=== PATIENT | female | born 1980 | race Caucasian/White ===

== ENCOUNTER 2018-08-17 14:08 | Outpatient (REF) | payer MEDICAID, SELFPAY ==
--- NOTE | 2018-08-17 13:20 | PAPFT_PTH ---
PATIENT: Sally Chauhan LOC: [facility] U#:[id number] AGE/SX: 38/F ROOM: RE08/17/[address]: Mikala Mckeon : 1980 BED: DIS: 08/17/2018 SPEC #: [id number] RECD: 08/17/18 17:56 STATUS: RAAD REMary Kate #: [id number] SARAY: 08/17/18 13:[address]: Mikala Mckeon DEPT: [facility] Cytology RECD BY: Eusebia Duncan ENTERED: 08/17/18 17:57 SP TYPE: PAPFT OTHR DR: Foster Singh Tissues: 1 - CX/ENDOCX FOR PAP SMEARS Procedures: PAP THIN PREP/UVM Screening HPV DNA PROBE Comments: [id number]
[2018-08-18 18:04] LABS: Chlamydia Result Negative; GC Result Negative; Specimen Description CERVIX
== END 2018-08-17 14:28 ==
LOC: LBN 14:08
PROVIDERS: PCP Naturopath; Visit Provider Obstetrics & Gynecology Gynecology
DX: Z12.4 Encounter for screening for malignant neoplasm of cervix (principal); Z11.51 Encounter for screening for human papillomavirus (HPV); Z11.3 Encounter for screening for infections with a predominantly sexual mode of transmission
CPT/HCPCS: 87491; 87591; 88142; 87624

== ENCOUNTER 2018-09-29 11:24 | Outpatient (CLI) | payer MEDICAID, SELFPAY ==
[2018-09-29 14:11] LABS: HCG Quant, Pregnancy 31592 mIU/mL (1-3)
== END 2018-09-29 11:44 ==
PROVIDERS: PCP Family Medicine; Visit Provider Obstetrics & Gynecology Gynecology
DX: N92.6 Irregular menstruation, unspecified (principal)
CPT/HCPCS: 36415; 84702

== ENCOUNTER 2018-09-30 02:01 | Outpatient (CLI) | payer MEDICAID, SELFPAY ==
--- NOTE | 2018-09-30 08:19 | DI.US_ITS ---
SYMPTOM/DIAGNOSIS: LLQ PAIN, R10.32, 020.9 OB ULTRASOUND: 09/30 OB ultrasound was performed utilizing first trimester protocol with transabdominal and transvaginal scanning. There is viable intrauterine gestation with crown/rump length measurements consistent with gestational age of 6 weeks, 1 day and EDC of 05/25/19. There is subchorionic fluid collection noted. cardiac activity is observed at a rate of 122 BPM. The ovaries are essentially unremarkable in appearance. Many abnormalities cannot be diagnosed. A normal exam does not exclude a congenital anomaly. Radiology No.[id number] LMP: 08/17/18 Exam Date: [facility] wks days on EDC ([facility]) Confirmed: HISTORY: FIRST TRIMESTER BLEEDING, EDC ---- PREDICTED GESTATIONAL AGE NUMBER 6 +3 weeks with a range of 5 +3 week to 7 +3 weeks. 1 Determined by___1STUS_XX__LMP___HISTORY Info. pertaining to fetus # PLACENTA PRESENTATION Grade 0 Cephalic___ Anterior___Posterior___ Breech____ Right Left Transverse(head right___ Fundal___Low-lying___Previa___ Transverse(head left___ Varying BIOMETRY AMNIOTIC FLUID BPD: mm weeks Normal HC: mm weeks AC: mm weeks FL: mm weeks AMNIOTIC FLUID INDEX >26 WK CRL: 4.7 mm 6 +1 weeks Cisterna Magna: mm CI: RUQ: LUQ Cerebellum: cm EFW: grams Percentile RLQ: LLQ Total: cms Composite AGE= 6 +1 wks EDC by US___05/25/19 BIOPHYSICAL PROFILE ANATOMY IDENTIFIED SCORE 0/2 Heart: 4-Chamber___Rate:BPM__122-125___ LVOT: RVOT: Amniotic Fluid(>2cms)____ Stomach: Kidneys: Respirations (>30 secs) Bladder: Post. Fossa: Body Flex/Extension 3 vessel cord: Ventricles: cord insertion: Lips:____ Extremity Flex/Extension spinal morphology: Nose: Total Score= Palate: NS=not seen
== END 2018-09-30 02:21 ==
PROVIDERS: PCP Family Medicine; Visit Provider Obstetrics & Gynecology Gynecology
DX: R10.32 Left lower quadrant pain (principal); O20.9 Hemorrhage in early pregnancy, unspecified
CPT/HCPCS: 76801

== ENCOUNTER 2018-11-23 01:25 | Outpatient (CLI) | payer MEDICAID, SELFPAY ==
--- NOTE | 2018-11-23 08:00 | DI.US_ITS ---
Many abnormalities cannot be diagnosed. A normal exam does not exclude a congenital anomaly. Radiology No. LMP: Exam Date: 11/23/18 [facility] wks days on EDC ([facility]) 05/25/19 Confirmed: HISTORY: ? DATES, AND VIABILITY,Z33.1 PREDICTED GESTATIONAL AGE NUMBER 13.6 weeks with a range of 12.6 week to 14.6 weeks. 1 Determined by___1STUS___LMP___HISTORY Info. pertaining to fetus # PLACENTA PRESENTATION Grade I Cephalic___ Anterior___Posterior_X__ Breech____ Right__X___ Left Transverse(head right___ Fundal___Low-lying___Previa___ Transverse(head left___ Varying_X____ BIOMETRY AMNIOTIC FLUID BPD: 28 mm 14.6 weeks Normal HC: 102 mm 14.6 weeks AC: 81 mm 14.3 weeks FL: 14 mm 14.2 weeks AMNIOTIC FLUID INDEX >26 WK CRL: mm weeks Cisterna Magna: mm CI: 84 RUQ: LUQ Cerebellum: cm EFW: grams Percentile RLQ: LLQ Total: cms Composite AGE= 14.4 wks EDC by US____05/20/19 BIOPHYSICAL PROFILE ANATOMY IDENTIFIED SCORE 0/2 Heart: 4-Chamber___Rate:BPM___147__ LVOT: RVOT: Amniotic Fluid(>2cms)____ Stomach: Kidneys: Respirations (>30 secs) Bladder: Post. Fossa: Body Flex/Extension 3 vessel cord:____X___Ventricles: cord insertion:____X_ Lips:____ Extremity Flex/Extension spinal morphology: Nose: Total Score= Palate: NS=not seen There is a single living intrauterine gestation. Estimated sonographic age is 14 weeks 4 days. Due to the age and lie of the fetus, a complete anatomic evaluation was not performed. heart rate is 147 beats per minute. Amniotic fluid is within normal limits visually. The placenta is posterior without evidence of previa. IMPRESSION: Single living intrauterine gestation. Estimated sonographic age is 14 weeks 4 days. The patient may return for routine complete anatomic evaluation at the appropriate time interval.
== END 2018-11-23 01:45 ==
PROVIDERS: PCP Family Medicine; Visit Provider Obstetrics & Gynecology Gynecology
DX: Z34.92 Encounter for supervision of normal pregnancy, unspecified, second trimester (principal)
CPT/HCPCS: 76801

== ENCOUNTER 2018-11-26 16:44 | Outpatient (REF) | payer MEDICAID, SELFPAY ==
[2018-11-26 20:03] LABS: *AMPHETAMINES SCREEN URINE Negative (Negative); *BARBITURATES SCREEN URINE Negative (Negative); *BENZODIAZEPINES SCREEN URINE Negative (Negative); Cannabinoids THC Negative (Negative); Cocaine Screen,Urine Negative (Negative); METHADONE URINE SCREEN Negative (Negative); OPIATES URINE SCREEN Negative (Negative)
[2018-11-26 20:04] LABS: Tricyclic Antidepressants Negative (Negative)
[2018-11-29 14:03] LABS: Chlamydia Result Negative; GC Result Negative; Specimen Description CERVIX
[2018-12-01 19:04] LABS: Buprenorphine Negative; Norbuprenorphine Negative
== END 2018-11-26 17:04 ==
LOC: LBN 16:44
PROVIDERS: PCP Family Medicine; Visit Provider Advanced Practice Midwife
DX: Z34.91 Encounter for supervision of normal pregnancy, unspecified, first trimester (principal); Z11.3 Encounter for screening for infections with a predominantly sexual mode of transmission
CPT/HCPCS: 80307; 87491; 87591; 87086

== ENCOUNTER 2018-12-20 08:06 | Outpatient (CLI) | payer MEDICAID, SELFPAY ==
[2018-12-20 10:01] LABS: HGB 12.2 g/dL (12.0-15.5); Mean Corp. HGB Concentration 33.9 g/dL (32.0-36.0); Mean Corpuscular Volume 91.6 fL (80-95); Mean Platelet Volume 11.2 fL (8.0-11.0); Platelet Count 197 x1000/uL (130-400); RBC 3.93 m/cumm (4.00-5.20); RBC Distribution Width 12.7 % (11.7-14.6); White Blood Cell Count 7.72 k/cumm (4.4-10.8)
[2018-12-20 10:26] LABS: Glucose,1 Hr (Glucola) 74 mg/dL (80-140)
== END 2018-12-20 08:26 ==
PROVIDERS: PCP Family Medicine; Visit Provider Advanced Practice Midwife
DX: Z34.91 Encounter for supervision of normal pregnancy, unspecified, first trimester (principal)
CPT/HCPCS: 36415; 82950; 85027

== ENCOUNTER 2018-12-23 00:21 | Outpatient (CLI) | payer MEDICAID, SELFPAY ==
--- NOTE | 2018-12-23 13:50 | DI.US_ITS ---
Many abnormalities cannot be diagnosed. A normal exam does not exclude a congenital anomaly. Radiology No. LMP: Exam Date: 12/23/18 [facility] 6 wks 1 days on 09/30/18 EDC ([facility]) 05/25/19 Confirmed: HISTORY: SURVEY, Z33.1 PREDICTED GESTATIONAL AGE NUMBER 18.1 weeks with a range of 17.1 week to 19.1 weeks. 1 Determined by__X_1STUS___LMP___HISTORY Info. pertaining to fetus # PLACENTA PRESENTATION Grade 0-1 Cephalic___ Anterior___Posterior_X__ Breech____ Right Left Transverse(head right___ Fundal___Low-lying___Previa___ Transverse(head left___ Varying__X____ BIOMETRY AMNIOTIC FLUID BPD: 43 mm 18.6 weeks Normal HC: 160 mm 18.6 weeks AC: 131 mm 18.4 weeks FL: 28 mm 18.3 weeks AMNIOTIC FLUID INDEX >26 WK CRL: mm weeks Cisterna Magna: 4 mm CI: 0.8 RUQ: LUQ Cerebellum: 1.8 cm EFW: 246 grams Percentile RLQ: LLQ Total: cms Composite AGE= 18.5 wks EDC by 05/21/19___ BIOPHYSICAL PROFILE ANATOMY IDENTIFIED SCORE 0/2 Heart: 4-Chamber_X__Rate:BPM____143/144_ LVOT: X____ RVOT:__X Amniotic Fluid(>2cms)____ Stomach: X_ Kidneys:_X Respirations (>30 secs) Bladder: X__ Post. Fossa:___X Body Flex/Extension 3 vessel cord:___X____Ventricles: X cord insertion:__X___ Lips:_X___ Extremity Flex/Extension spinal morphology:___X Nose:X Total Score= Palate:__X NS=not seen OB ultrasound was performed utilizing second trimester protocol. There is a single fetus with biometry consistent with a gestational age of 18 weeks 5 days and an EDC of 05/21/19. Placenta is posterior with no evidence of a placenta previa. There is a normal quantity of amniotic fluid. anomaly screen is within normal limits as per the OB ultrasound worksheet.
== END 2018-12-23 00:41 ==
PROVIDERS: PCP Family Medicine; Visit Provider Advanced Practice Midwife
DX: Z34.92 Encounter for supervision of normal pregnancy, unspecified, second trimester (principal)
CPT/HCPCS: 76805

== ENCOUNTER 2019-02-24 02:44 | Outpatient (CLI) | payer MEDICAID, SELFPAY ==
[2019-02-24 08:43] LABS: HCT 35.7 % (36.0-46.0); HGB 12.1 g/dL (12.0-15.5); Mean Corp. HGB Concentration 33.9 g/dL (32.0-36.0); Mean Corpuscular Hemoglobin 31.3 pg (27.0-33.0); Mean Corpuscular Volume 92.5 fL (80-95); Mean Platelet Volume 11.2 fL (8.0-11.0); Platelet Count 187 x1000/uL (130-400); RBC 3.86 m/cumm (4.00-5.20); RBC Distribution Width 12.6 % (11.7-14.6); White Blood Cell Count 7.09 k/cumm (4.4-10.8)
[2019-02-24 08:45] LABS: Glucose,1 Hr (Glucola) 83 mg/dL (80-140)
== END 2019-02-24 03:04 ==
PROVIDERS: PCP Family Medicine; Visit Provider Advanced Practice Midwife
DX: Z34.92 Encounter for supervision of normal pregnancy, unspecified, second trimester (principal)
CPT/HCPCS: 36415; 82950; 85027

== ENCOUNTER 2019-04-20 13:57 | Outpatient (REF) | payer MEDICAID, SELFPAY ==
[2019-04-20 15:08] LABS: *AMPHETAMINES SCREEN URINE Negative (Negative); *BARBITURATES SCREEN URINE Negative (Negative); *BENZODIAZEPINES SCREEN URINE Negative (Negative); Cannabinoids THC POSITIVE (Negative); Cocaine Screen,Urine Negative (Negative); METHADONE URINE SCREEN Negative (Negative); OPIATES URINE SCREEN Negative (Negative)
[2019-04-20 15:16] LABS: Tricyclic Antidepressants Negative (Negative)
[2019-04-25 13:07] LABS: Buprenorphine Negative; Norbuprenorphine Negative
== END 2019-04-20 14:17 ==
LOC: LBN 13:57
PROVIDERS: PCP Family Medicine; Visit Provider Advanced Practice Midwife
DX: Z34.90 Encounter for supervision of normal pregnancy, unspecified, unspecified trimester (principal); Z33.1 Pregnant state, incidental
CPT/HCPCS: 80307; 87081

== ENCOUNTER 2019-05-03 17:15 | Inpatient (IN) | payer MEDICAID, SELFPAY ==
[2019-05-03] MEDS: Lactated Ringers 1,000 ML 1000 ML IV (18:28)
[2019-05-03 20:30] LABS: HCT 34.9 % (36.0-46.0); HGB 11.8 g/dL (12.0-15.5); Mean Corp. HGB Concentration 33.8 g/dL (32.0-36.0); Mean Corpuscular Volume 91.6 fL (80-95); Mean Platelet Volume 11.3 fL (8.0-11.0); Platelet Count 180 x1000/uL (130-400); RBC 3.81 m/cumm (4.00-5.20); RBC Distribution Width 12.9 % (11.7-14.6); White Blood Cell Count 7.53 k/cumm (4.4-10.8)
[2019-05-03] MEDS: Lactated Ringers 1,000 ML 200 ML IV (20:54)
[2019-05-03] MEDS: Sodium Citrate 30 ML CUP PO (20:54)
[2019-05-03] MEDS: ceFAZolin 2,000 MG in Normal Saline 100 ML 200 MG IVPB (21:25)
[2019-05-03] MEDS: ceFAZolin 1,000 MG VIAL 1000 MG (21:25)
[2019-05-04] MEDS: Acetaminophen 325 MG TAB 650 MG PO ×4 (00:58→23:35)
[2019-05-04] MEDS: oxyCODONE 5 mg/Acetaminophen 325 mg TAB PO ×4 (00:59→23:34)
[2019-05-04] MEDS: Ketorolac 30 MG/ML VIAL IVP ×4 (05:52→23:33)
[2019-05-04 07:14] LABS: HCT 31.2 % (36.0-46.0); HGB 10.3 g/dL (12.0-15.5); Mean Corpuscular Hemoglobin 30.2 pg (27.0-33.0); Mean Corpuscular Volume 91.5 fL (80-95); Mean Platelet Volume 11.3 fL (8.0-11.0); Platelet Count 164 x1000/uL (130-400); RBC 3.41 m/cumm (4.00-5.20); RBC Distribution Width 12.8 % (11.7-14.6); White Blood Cell Count 9.27 k/cumm (4.4-10.8)
[2019-05-04] MEDS: Lactated Ringers 1,000 ML 200 ML IV (07:38)
[2019-05-04] MEDS: Normal Saline Flush 10 ML SYR IVP ×2 (12:22→18:05)
--- NOTE | 2019-05-04 14:47 | W.PM.OP ---
Date of service: 05/03/19 Time of Service: 23:30 Operative Note DATE OF PROCEDURE: 05/03/19 PRE-OP DIAGNOSIS: 38 weeks. Early labor. Breach presentation POST-OP DIAGNOSIS: same PROCEDURE: Primary low transverse section SURGEON: Jordi Gale ASSISTING SURGEON: Carlos Lane ANESTHESIA: spinal ESTIMATED BLOOD LOSS: 600 PATHOLOGY: none sent COMPLICATIONS: None Patient was transported to: floor Patient's condition: stable Findings: 1. Del LBF 9,9 Procedure Description: The patient was taken to the operating room and after adequate level of spinal anesthesia was obtained the patient was placed in supine position with a left lateral tilt. The patient was prepped and draped in usual sterile manner. Pfannenstiel skin incision was then made with a #10 blade scalpel and sharp dissection was carried down to the underlying layer fascia. The fascia was incised the midline with the scalpel and extended laterally in either direction with Chapman scissors. The superior and inferior aspects of the fascial incision were dissected off the underlying layer rectus muscles using both blunt sharp dissection. The rectus muscles were divided in the midline along the linea alba with blunt digital dissection and the peritoneum was entered sharply. The peritoneal incision was extended superiorly and inferiorly with Chapman scissors. The bladder blade was then inserted. The vesicouterine flap was tented up with pickups and incised the midline with Metzenbaum scissors and the incision carried laterally in either direction Metzenbaum scissors. The bladder flap was then created digitally. The lower uterine segment was incised in a transverse manner with a scalpel and the incision was carried laterally in either direction by stretch. The amnion was entered with hemostats. The was found in daniel breech presentation and delivered atraumatically. The mouth and nose were suctioned. The cord was clamped and cut. The was handed off to the waiting entry level accountant. The uterus was cleared of all clots and debris. The hysterotomy was closed with a running lock stitch of #1 chromic. A second imbricating layer of #1 chromic in a Lambert stitch was used to obtain hemostasis. The vesicouterine flap was reapproximated with a running stitch of 0 Vicryl. It was recognized with some minor oozing was localized in the bladder flap and the space was filled with 10 mL's of FloSeal. The gutters were cleared of all clots and debris. The peritoneum was closed with a running suture of 2-0 Vicryl. The subfascial space was thoroughly inspected and noted to be hemostatic. The fascia was closed with a running stitch of 0 Vicryl. The subcutaneous tissues were closed with interrupted sutures of 3-0 Vicryl. The skin was closed with a running subcuticular stitch of 4 Monocryl and Dermabond was applied. The procedure was concluded at this point. Sponge lap needle counts were correct at the conclusion of the procedure and the patient tolerated the procedure well and was transferred to PACU stable condition.
--- NOTE | 2019-05-04 14:50 | ROE_ITS ---
Date of service: 05/03/19 Time of Service: 23:30 Operative Note DATE OF PROCEDURE: 05/03/19 PRE-OP DIAGNOSIS: 38 weeks. Early labor. Breach presentation POST-OP DIAGNOSIS: same PROCEDURE: Primary low transverse section SURGEON: Jordi Gale ASSISTING SURGEON: Carlos Lane ANESTHESIA: spinal ESTIMATED BLOOD LOSS: 600 PATHOLOGY: none sent COMPLICATIONS: None Patient was transported to: floor Patient's condition: stable Findings: 1. Del LBF 9,9 Procedure Description: The patient was taken to the operating room and after adequate level of spinal anesthesia was obtained the patient was placed in supine position with a left lateral tilt. The patient was prepped and draped in usual sterile manner. Pfannenstiel skin incision was then made with a #10 blade scalpel and sharp dissection was carried down to the underlying layer fascia. The fascia was incised the midline with the scalpel and extended laterally in ei ther direction with Chapman scissors. The superior and inferior aspects of the fascial incision were dissected off the underlying layer rectus muscles using both blunt sharp dissection. The rectus muscles were divided in the midline along the linea alba with blunt digital dissection and the peritoneum was entered sharply. The peritoneal incision was extended superiorly and inferiorly with Chapman scissors. The bladder blade was then inserted. The vesicouterine flap was tented up with pickups and incised the midline with Metzenbaum scissors and the incision carried laterally in either direction Metzenbaum scissors. The bladder flap was then created digitally. The lower uterine segment was incised in a transverse manner with a scalpel and the incision was carried laterally in either direction by stretch. The amnion was entered with hemostats. The was found in daniel breech presentation and delivered atraumatically. The mouth and nose were suctioned. The cord was clamped and cut. The infant was handed off to the waiting art psychotherapist or therapist. The uterus was cleared of all clots and debris. The hysterotomy was closed with a running lock stitch of #1 chromic. A second imbricating layer of #1 chromic in a Lambert stitch was used to obtain hemostasis. The vesicouterine flap was reapproximated with a running stitch of 0 Vicryl. It was recognized with some minor oozing was localized in the bladder flap and the space was filled with 10 mL's of FloSeal. The gutters were cleared of all clots and debris. The peritoneum was closed with a running suture of 2-0 Vicryl. The subfascial space was thoroughly inspected and noted to be hemostatic. The fascia was closed with a running stitch of 0 Vicryl. The subcutaneous tissues were closed with interrupted sutures of 3-0 Vicryl. The skin was closed with a running subcuticular stitch of 4 Monocryl and Dermabond was applied. The procedure was concluded at this point. Sponge lap needle counts were correct at the conclusion of the procedure and the patient tolerated the procedure well and was transferred to PACU stable condition.
[2019-05-05] MEDS: Ibuprofen 600 MG TAB PO (05:51)
--- NOTE | 2019-05-05 11:29 | W.PM.DS.N ---
Date of service: 05/05/19 Time of Service: 11:29 DS: Diagnosis Discharge Diagnosis (1) delivery delivered: Start date: 05/03/19 Status: Acute Asessment and Plan: s/p PCS for Breech presentation, delivered Discharge home Pain meds Ibuprofen and Percocet Discharge Plan Disposition Patient Disposition: HOME Condition: Stable Discharge Details Reason For Visit: RULE OUT LABOR Admit Date/Time: 05/03/19 17:15 Admit Provider: Jordi Gale Attending Provider: Jordi Gale Primary Care Provider: Tamy Campbell [facility] Course Hospital Course: Presented in labor. breech so she underwent a PCS low transverse without complications. Female 2635gm Apgars 8,9. She had an uncomplicated course. was well established at discharge. She was discharged to home in stable condition. Home Meds and New Rx's Prescriptions: New acetaminophen [Tylenol] 325 mg Tablet 650 mg PO Q4H PRN PRNQty: 30 RF: 0 oxycodone-acetaminophen 5-325 mg Tablet 1 tab PO Q4H PRN PRNQty: 10 RF: 0 docusate sodium [Colace] 100 mg Capsule 100 mg PO BID PRN PRNQty: 60 RF: 0 ibuprofen [IBU] 600 mg Tablet 600 mg PO Q6H PRN PRNQty: 30 RF: 2 Continued Flintstones Complete tablet,chewable 2 tab PO DAILY RF: 0 valacyclovir [Valtrex] 500 mg tablet 500 mg PO DAILY Qty: 30 RF: 0 Discharge Instructions Stand Alone Forms: BC Instructions, BC Discharge Instruc Referrals: Jordi Gale MD [ NON-[facility] STAFF PHYSICIAN] - (2+6 week PP follow up) Activity:: Activity as Tolerated Equipment/Supplies:: No Equipment Needed Diet:: As Tolerated Discharge Orders Discharge Orders: Discharge Order (Routine); Ordered 05/05/19 Ordered By: Ariana Luna DS: Summary Status at Discharge Cognitive/behavioral status at discharge: A+O Functional status at discharge: independent ambulation Time Spent with Patient Greater than 30 minutes Exam Narrative Exam Narrative: 38 yo female no acute distress comfortable postop Chest Breast inspection: normal inspection of the breasts Resp Effort & Inspection: normal respiratory effort Auscultation: clear to auscultation bilaterally Cardio Rate: regular rate Rhythm: regular rhythm GI Inspection: normal to inspection Palpation: soft Other: appropriate incisional tenderness Incision c/d/i Extrem General: edema (pedal edema no calf tenderness) Laterality: bilateral DS: Data Vitals/I&O Vitals and I&O: Vital Signs Pain Level 3 05/05/19 07:30 Intake & Output 05/04/19 05/04/19 05/05/19 11:59 23:59 11:59 Intake Total 900 / 900 Balance 900 / 900 Intake: IV 900 / 900 PFSH Medical History Abnormal Pap smear of cervix (12/19/13) Fibromyalgia (Acute) dengue fever (Resolved) Bacterial urinary infection Family History Mother Hypertension Maternal Grandfather Heart disease Maternal Grandmother Heart disease Other Family history of cardiovascular disease Social History Smoking/Tobacco Use Status: Former Tobacco Use (stopped 10 yrs ago.) Alcohol Intake: never Drug use: Never Substance use type: does not use Household members: children and other Details: Christie Ch in HS. Nasra 9yo, [employer]. 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 Do you feel safe in your relationship?: Yes Female Reproductive History Menstrual control method: condoms History History 7 Para 4 Hx # Term Pregnancies 4 Multiple births 0 Hx # Pregnancies 0 Ectopic pregnancies 0 AB induced 0 Hx Number of Living Children 4 AB spontaneous 2 Past Pregnancies Del. Date GA/Weeks # Outcome Route Wgt Sex Labor Lgth Anesthesia Location Prov Complic 11/12/99 42 No Successful vaginal 4.094 kg Male 36 hrs anea 05/08/02 40 No Successful vaginal 3.856 kg Female 5 hrs mark ovalles cm 03/24/09 41 No Successful vaginal 3.856 kg Female 3 hrs mark ovalles cm 07/21/14 41 No Successful vaginal 3.629 kg Male 1.5 hrs sebastián hall cm Delivery Date: 07/21/14 On 11/26/18 @ 15:01 JEFF CEE w/o l&d complications, yet @ 28 [place] [facility] [place] d/c to home w/ bedrest for remainder of , went 41 weeks. Delivery Date: 03/24/09 On 11/26/18 @ 14:44 JEFF CEE uneventful l&d. Delivery Date: 05/08/02 On 11/26/18 @ 14:47 JEFF CEE 2` apnea ambu bag of 2,2,7 home Delivery Date: 11/12/99 On 11/26/18 @ 14:39 JEFF CEE tight as per pt yet w/o shoulder dystocia
--- NOTE | 2019-05-05 11:34 | DSE_ITS ---
Date of service: 05/05/19 Time of Service: 11:29 DS: Diagnosis Discharge Diagnosis (1) delivery delivered: Start date: 05/03/19 Status: Acute Asessment and Plan: s/p PCS for Breech presentation, delivered Discharge home Pain meds Ibuprofen and Percocet Discharge Plan Disposition Patient Disposition: HOME Condition: Stable Discharge Details Reason For Visit: RULE OUT LABOR Admit Date/Time: 05/03/19 17:15 Admit Provider: Jordi Gale Attending Provider: Jordi Gale Primary Care Provider: Tamy Campbell [facility] Course Hospital Course: Presented in labor. breech so she underwent a PCS low transverse without complications. Female 2635gm Apgars 8,9. She had an uncomplicated course. was well established at discharge. She was discharged to home in stable condition. Home Meds and New Rx's Prescriptions: New acetaminophen [Tylenol] 325 mg Tablet 650 mg PO Q4H PRN PRNQty: 30 RF: 0 oxycodone-acetaminophen 5-325 mg Tablet 1 tab PO Q4H PRN PRNQty: 10 RF: 0 docusate sodium [Colace] 100 mg Capsule 100 mg PO BID PRN PRNQty: 60 RF: 0 ibuprofen [IBU] 600 mg Tablet 600 mg PO Q6H PRN PRNQty: 30 RF: 2 Continued Flintstones Complete tablet,chewable 2 tab PO DAILY RF: 0 valacyclovir [Valtrex] 500 mg tablet 500 mg PO DAILY Qty: 30 RF: 0 Discharge Instructions Stand Alone Forms: BC Instructions, BC Discharge Instruc Referrals: Jordi Gale MD [ NON-[facility] STAFF PHYSICIAN] - (2+6 week PP follow up) Activity:: Activity as Tolerated Equipment/Supplies:: No Equipment Needed Diet:: As Tolerated Discharge Orders Discharge Orders: Discharge Order (Routine); Ordered 05/05/19 Ordered By: Ariana Luna DS: Summary Status at Discharge Cognitive/behavioral status at discharge: A+O Functional status at discharge: independent ambulation Time Spent with Patient Greater than 30 minutes Exam Narrative Exam Narrative: 38 yo female no acute distress comfortable postop Chest Breast inspection: normal inspection of the breasts Resp Effort & Inspection: normal respiratory effort Auscultation: clear to auscultation bilaterally Cardio Rate: regular rate Rhythm: regular rhythm GI Inspection: normal to inspection Palpation: soft Other: appropriate incisional tenderness Incision c/d/i Extrem General: edema (pedal edema no calf tenderness) Laterality: bilateral DS: Data Vitals/I&O Vitals and I&O: Vital Signs Pain Level 3 05/05/19 07:30 Intake & Output 05/04/19 05/04/19 05/05/19 11:59 23:59 11:59 Intake Total 900 / 900 Balance 900 / 900 Intake: IV 900 / 900 PFSH Medical History Abnormal Pap smear of cervix (12/19/13) Fibromyalgia (Acute) dengue fever (Resolved) Bacterial urinary infection Family History Mother Hypertension Maternal Grandfather Heart disease Maternal Grandmother Heart disease Other Family history of cardiovascular disease Social History Smoking/Tobacco Use Status: Former Tobacco Use (stopped 10 yrs ago.) Alcohol Intake: never Drug use: Never Substance use type: does not use Household members: children and other Details: Christie Ch in HS. Nasra 9yo, [employer]. 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 Do you feel safe in your relationship?: Yes Female Reproductive History Menstrual control method: condoms History History 7 Para 4 Hx # Term Pregnancies 4 Multiple births 0 Hx # Pregnancies 0 Ectopic pregnancies 0 AB induced 0 Hx Number of Living Children 4 AB spontaneous 2 Past Pregnancies Del. Date GA/Weeks # Outcome Route Wgt Sex Labor Lgth Anesthesia Location Prov Complic 11/12/99 42 No Successful vaginal 4.094 kg Male 36 hrs anea 05/08/02 40 No Successful vaginal 3.856 kg Female 5 hrs mark ovalles cm 03/24/09 41 No Successful vaginal 3.856 kg Female 3 hrs mark ovalles cm 07/21/14 41 No Successful vaginal 3.629 kg Male 1.5 hrs sebastián hall cm Delivery Date: 07/21/14 On 11/26/18 @ 15:01 JEFF CEE w/o l&d complications, yet @ 28 weeks [place] [facility] [place] d/c to home w/ bedrest for remainder of , went 41 weeks. Delivery Date: 03/24/09 On 11/26/18 @ 14:44 JEFF CEE uneventful l&d. Delivery Date: 05/08/02 On 11/26/18 @ 14:47 JEFF CEE 2` apnea ambu bag of 2,2,7 home Delivery Date: 11/12/99 On 11/26/18 @ 14:39 JEFF CEE tight as per pt yet w/o shoulder dystocia
== END 2019-05-05 12:05 | disposition home or self-care (01) | DRG 788 ==
PROVIDERS: Admitting Provider Obstetrics & Gynecology; PCP Family Medicine; Visit Provider Obstetrics & Gynecology
PROC: 10D00Z1 Extraction of Products of Conception, Low, Open Approach (ICD-10-PCS; CPT 59514; principal; 2019-05-03 20:10)
DX: O75.82 Onset (spontaneous) of labor after 37 completed weeks of gestation but before 39 completed weeks gestation, with delivery by (planned) cesarean section (principal); O32.1XX0 Maternal care for breech presentation, not applicable or unspecified; Z3A.37 37 weeks gestation of pregnancy; Z37.0 Single live birth; O99.824 Streptococcus B carrier state complicating childbirth
CPT/HCPCS: 59514; 36415; 85027; 86850; 86900; 86901; 99239; J0690; J1885; J2270; J2370; J2405; J2590

== ENCOUNTER 2019-06-17 12:20 | Outpatient (REF) | payer MEDICAID, SELFPAY ==
--- NOTE | 2019-06-17 10:45 | PAPFT_PTH ---
PATIENT: Sally Chauhan LOC: [facility] U#:[id number] AGE/SX: 39/F ROOM: RE06/17/[address]: Curry Pickett RN : 1980 BED: DIS: 06/17/2019 SPEC #: [id number] RECD: 06/17/19 12:58 STATUS: RAAD REQ #: [id number] SARAY: 06/17/19 10:[address]: Curry Pickett DEPT: [facility] Cytology RECD BY: Eusebia Duncan ENTERED: 06/17/19 12:58 SP TYPE: PAPFT OTHR DR: Tamy Campbell Tissues: 1 - CX/ENDOCX FOR PAP SMEARS Procedures: PAP THIN PREP/UVM Screening HPV DNA PROBE Comments: [id number]
== END 2019-06-17 12:40 ==
LOC: LBN 12:20
PROVIDERS: PCP Family Medicine; Visit Provider Advanced Practice Midwife
DX: Z11.4 Encounter for screening for human immunodeficiency virus [HIV] (principal); Z11.51 Encounter for screening for human papillomavirus (HPV)
CPT/HCPCS: 88142; 87624

== ENCOUNTER 2020-03-27 07:24 | Emergency (ER) | payer MEDICAID, SELFPAY ==
[2020-03-27 07:29] VITALS: BP 145/62; PULSE 77; RESP 16; TEMP 36.6; O2SAT 98
--- NOTE | 2020-03-27 07:52 | ED.GENADUL_ITS ---
Discharge Plan Disposition Patient Disposition: HOME Condition: Improving Discharge Details Chief Complaint: Nk/Back Pain Clinical Impression: Acute torticollis Primary Care Provider: Tamy Campbell ED Provider: Jasbir Carson Home Meds and New Rx's Prescriptions: New methocarbamol 500 mg tablet 500 - 1,000 mg PO Q6H PRN (Reason: Back pain or spasm) Qty: 14 RF: 0 Continued ascorbic acid (vitamin C) [Vitamin C] 500 mg Tablet 500 mg PO DAILY RF: 0 calcium-magnesium 300-300 mg Tablet 1 tab PO DAILY RF: 0 cholecalciferol (vitamin D3) [Vitamin D3] 10 mcg (400 unit) Tablet 10 mcg PO DAILY RF: 0 omega 6-nfm-qny-fish oil [Fish Oil] 1,000 mg (120 mg-180 mg) Capsule 1 cap PO DAILY RF: 0 Probiotic 5 billion cell Capsule, Sprinkle 1 cap PO DAILY RF: 0 ibuprofen [IBU] 600 mg Tablet 600 mg PO Q6H PRN PRNQty: 30 RF: 2 Discharge Instructions Instructions: Spasmodic Torticollis (ED) Additional Instructions: Apply warm/moist heat to area to increase blood flow. May apply gentle massage or stretching. Methocarbamol is considered low risk for breast-feeding but would recommend you hold breast-feeding when taking this medication. Continue Tylenol and ibuprofen as needed for discomfort. Return if you develop a fever, worsening discomfort, or any other acute concerns. May resume activity as tolerated. Remove Lidoderm patch in 12 hours time. Medical Decision Making 39-year-old female who is breast-feeding. She presents with neck pain and spasm present on exam. She has a moderate torticollis. There is no evidence of central process. There is no evidence of infection. Lidoderm patch placed and patient given ketorolac IM. She is offered methocarbamol and given instructions as to its low risk for use during breast- feeding. She will return if she does a fever, worsening pain, or any other acute concerns. HPI General Mode of arrival: ambulatory . Date/Time Provider Initiated Documentation: 03/27/20 07:33 . Limitations to Documentation: no limitations . Information obtained by: patient . History of Present Illness 39 year old F presents to the emergency department with the chief complaint of Neck pain, described as moderate, Quality is described as dull and constant, and is localized to the neck, left and right. Patient reports no radiation. Patient started experiencing this hour(s) and it has been constant. No relieving factors improve symptom(s), Movement worsens symptoms . Patient notes no other symptoms.; denies weakness. Patient did receive the following treatments prior to arrival, NSAID Related Data Home Medications Medication Instructions Recorded Confirmed ibuprofen [IBU] 600 mg PO Q6H PRN PRN #30 tab 05/05/19 03/27/20 Probiotic 1 cap PO DAILY 03/27/20 03/27/20 ascorbic acid (vitamin C) [Vitamin 500 mg PO DAILY 03/27/20 03/27/20 C] calcium-magnesium 1 tab PO DAILY 03/27/20 03/27/20 cholecalciferol (vitamin D3) 10 mcg PO DAILY 03/27/20 03/27/20 [Vitamin D3] methocarbamol 500 - 1,000 mg PO Q6H PRN #14 tab 03/27/20 omega 4-ils-fcv-fish oil [Fish Oil] 1 cap PO DAILY 03/27/20 03/27/20 Previous Rx's Medication Instructions Recorded ibuprofen [IBU] 600 mg PO Q6H PRN PRN #30 tab 05/05/19 methocarbamol 500 - 1,000 mg PO Q6H PRN #14 tab 03/27/20 Allergies Allergy/AdvReac Type Severity Reaction Status Date / Time latex Allergy Intermediate Itchiness,r Verified 03/27/20 07:34 kiet Sulfa (Sulfonamide Allergy Intermediate Rash Verified 03/27/20 07:34 Antibiotics) progesterone AdvReac Severe INTENSE Verified 03/27/20 07:34 MOODINESS promethazine AdvReac Unknown Topical Verified 03/27/20 07:34 Irritation General Stated Complaint: Nk/Back Pain VICKY: 3 Review of Systems Narrative: No fall or injury. No weakness or numbness of the extremities. She has otherwise been well. 5 systems reviewed and negative. [facility] Medical History Abnormal Pap smear of cervix (12/19/13) LGSIL during . 10/11/14 repeat pap =Neg/ + HPV. 2015 Nl Pap, + HPV. 2017 Pap/HPV Nl/+HPV. Bacterial urinary infection dengue fever (Resolved) Fibromyalgia (Acute) (Inactive) Social History Smoking/Tobacco Use Status: Former Tobacco Use Alcohol Intake: never Drug use: Never Substance use type: does not use Household members: children and other Details: Christie Ch in HS. Nasra 9yo, [employer]. 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 Do you feel safe in your relationship?: Yes Female Reproductive History Menstrual control method: condoms History History 7 Para 5 Hx # Term Pregnancies 5 Multiple births 0 Hx # Pregnancies 0 Ectopic pregnancies 0 AB induced 0 Hx Number of Living Children 5 AB spontaneous 2 Past Pregnancies Del. Date GA/Weeks # Outcome Route Wgt Sex Labor Lgth Anesthes ia Location Prov Complic 11/12/99 42 No Successful vaginal 4.094 kg Male 36 hrs anea 05/08/02 40 No Successful vaginal 3.856 kg Female 5 hrs mark forester cm 03/24/09 41 No Successful vaginal 3.856 kg Female 3 hrs mark forester cm 07/21/14 41 No Successful vaginal 3.629 kg Male 1.5 hrs sebastián isabel cm 05/03/19 37 No Successful 2.637 kg Female regional Jordi Gale MD Delivery Date: 11/12/99 tight as per pt yet w/o shoulder dystocia [facility] Delivery Date: 05/08/02 2` apnea ambu bag of 2,2,7 home [facility] Delivery Date: 03/24/09 uneventful l&d. [facility] Delivery Date: 07/21/14 w/o l&d complications, yet @ 28 weeks ptl, [facility] x3 days then d/c to home w/ bedrest for remainder of , went 41 weeks. [facility] Delivery Date: 05/03/19 for breech presentation; Patient had timeable contractions, done emergently due to the breech presentation. Criss Galdamez Exam Narrative Exam Narrative: GEN: awake, alert, oriented 3. Pleasant, well groomed, interactive. HEAD: Normocephalic, atraumatic ENT: Mucous membranes moist, oropharynx unremarkable, External ear exam unremarkable EYES: PERRL, EOMI NECK: Full ROM, muscular spasm and tenderness left side strap muscles. No midline tenderness or step-off. CHEST/RESP: Nontender, clear to auscultation bilateral, no wheeze/rhonchi/rales CARDIOVASCULAR: RRR, no murmur, rub aletha. 2+ Rad pulse bilateral EXT: Full ROM, no edema, no rash Neuro: Grossly normal neurologic exam, conversant, interactive. Psych: Speech fluent, thoughts congruent, affect normal Course Vital Signs Vital signs: Vital Signs Temperature 36.6 C 03/27/20 07:29 Pulse 77 03/27/20 07:29 Respiratory Rate 16 03/27/20 07:29 Blood Pressure 145/62 H 03/27/20 07:29 Pulse Oximetry 98 03/27/20 07:29 Temperature 36.6 C 03/27/20 07:29 Temperature Source Skin 03/27/20 07:29 Pulse 77 03/27/20 07:29 Respiratory Rate 16 03/27/20 07:29 Respiratory Effort Non-Labored 03/27/20 07:29 Blood Pressure 145/62 H 03/27/20 07:29 Blood Pressure Position Sitting 03/27/20 07:29 Pulse Oximetry 98 03/27/20 07:29 Oxygen Delivery Method Room Air 03/27/20 07:29 Oxygen Flow Rate 0 03/27/20 07:29 Pain Level 9 03/27/20 07:41
[2020-03-27] MEDS: Lidocaine 5% Patch 1 PATCH TP (08:00)
[2020-03-27] MEDS: Ketorolac 30 MG/ML VIAL IM (08:02)
== END 2020-03-27 08:17 | disposition home or self-care (01) ==
PROVIDERS: Emergency Provider Emergency Medicine; PCP Family Medicine
DX: G24.3 Spasmodic torticollis (principal); M79.7 Fibromyalgia
CPT/HCPCS: 96372; 99284; 99283; J1885

== ENCOUNTER 2020-04-03 20:05 | Outpatient (REF) | payer MEDICAID, SELFPAY ==
[2020-04-03 20:35] LABS: Absolute Basophil Count 0.03 k/cumm (0.0-0.2); Absolute Eosinophil Count 0.08 k/cumm (0.0-0.7); Absolute Lymphocyte Count 1.68 k/cumm (1.2-3.4); Absolute Monocyte Count 0.57 k/cumm (0.11-0.7); Absolute Neutrophil Count 4.19 k/cumm (1.2-6.7); Basophils % 0.5; Eosinophils % 1.2; HGB 14.5 g/dL (12.0-15.5); Lymphocytes % 25.6; Mean Corp. HGB Concentration 33.7 g/dL (32.0-36.0); Mean Corpuscular Hemoglobin 31.3 pg (27.0-33.0); Mean Corpuscular Volume 92.9 fL (80-95); Mean Platelet Volume 11.4 fL (8.0-11.0); Monocytes % 8.7; Platelet Count 284 x1000/uL (130-400); RBC 4.63 m/cumm (4.00-5.20); RBC Distribution Width 12.8 % (11.7-14.6); White Blood Cell Count 6.55 k/cumm (4.4-10.8)
[2020-04-03 20:46] LABS: C-Reactive Protein 0.23 mg/dL (0.0-0.3)
[2020-04-03 21:34] LABS: ESR 16 mm/hr (0-20)
[2020-04-04 17:39] LABS: Rheumatoid Factor <8.6 IU/mL (<12.0)
[2020-04-05 10:39] LABS: Lyme Ab w Rflx to Lyme Confirm Negative (Negative)
[2020-04-05 14:45] LABS: ANA Interpretation Negative (Negative)
[2020-04-07 00:48] LABS: Anaplasma phagocytophilum Negative (Negative); B. miyamotoi PCR Negative (Negative); Babesia divergens/MO-1 Negative (Negative); Babesia duncani Negative (Negative); Babesia microti Negative (Negative); Ehrlichia chaffeensis Negative (Negative); Ehrlichia ewingii/canis Negative (Negative); Ehrlichia muris eauclairensis Negative (Negative)
== END 2020-04-03 20:25 ==
LOC: NCHCN 20:05
PROVIDERS: PCP Family Medicine; Visit Provider Nurse Practitioner Family
DX: M54.9 Dorsalgia, unspecified (principal); M79.7 Fibromyalgia
CPT/HCPCS: 85652; 87798; 85025; 86038; 86140; 86431; 86618

== ENCOUNTER 2020-07-12 12:56 | Outpatient (REF) | payer MEDICAID, SELFPAY | END 2020-07-12 13:16 | LOC: LBN 12:56 | PROVIDERS: PCP Family Medicine; Visit Provider Nurse Practitioner Family | DX: R30.0 Dysuria (principal) | CPT/HCPCS: 87086 ==

== ENCOUNTER 2021-10-29 10:03 | Outpatient (REF) | payer MEDICAID, SELFPAY ==
[2021-10-29 14:36] LABS: Abs Immature Grans 0.01 10^3/uL (0.0-0.06); Absolute Basophil Count 0.07 10^3/uL (0.0-0.2); Absolute Eosinophil Count 0.22 10^3/uL (0.0-0.7); Absolute Lymphocyte Count 1.74 10^3/uL (1.2-3.4); Absolute Monocyte Count 0.34 10^3/uL (0.1-0.8); Basophils % 1.3; Eosinophils % 4.2; HGB 12.6 g/dL (11.2-15.7); Immature Grans % 0.2; MCHC 32.3 % (32.0-36.0); MCV 92.9 fL (80-95); MPV 11.4 fL (8.0-11.0); Monocytes % 6.4; Neutrophils % 54.9; Nucleated RBC 0 %; Platelet Count 248 10^3/uL (130-400); RDW 13.2 % (11.7-14.6); RDW-SD 44.7 fL; WBC 5.28 10^3/uL (4.4-10.8)
[2021-10-29 14:40] LABS: ESR 33 mm/hr (0-20)
[2021-10-29 14:53] LABS: ALT 59 U/L (14-59); AST 30 U/L (15-37); Albumin 3.8 g/dL (3.4-5.0); Alkaline Phosphatase 69 U/L (46-116); BUN 19 mg/dL (7-18); Bilirubin, Total 0.4 mg/dL (0.2-1.0); CREATININE 1.1 mg/dL (0.55-1.02); Chloride 104 mmol/L (98-107); Estimated GFR 54.74 (mL/min/1.73m2); Glucose 92 mg/dL (74-106); Potassium 4.5 mmol/L (3.5-5.1); Sodium 141 mmol/L (136-145); TSH (W/Ref FT4) 1.47 uIU/mL (0.36-3.74); Total Protein 7.1 g/dL (6.4-8.2)
[2021-10-30 10:35] LABS: Lyme Ab w Rflx to Lyme Confirm Negative (Negative)
[2021-10-31 20:59] LABS: Anaplasma phagocytophilum Negative (Negative); B. miyamotoi PCR Negative (Negative); Babesia divergens/MO-1 Negative (Negative); Babesia duncani Negative (Negative); Babesia microti Negative (Negative); Ehrlichia chaffeensis Negative (Negative); Ehrlichia ewingii/canis Negative (Negative); Ehrlichia muris eauclairensis Negative (Negative)
== END 2021-10-29 10:04 | disposition home or self-care (01) ==
LOC: NCHCN 10:03
PROVIDERS: PCP Family Medicine; Visit Provider Family Medicine
DX: R53.83 Other fatigue (principal); M79.18 Myalgia, other site
CPT/HCPCS: 80053; 85652; 87798; 84443; 85025; 86618

== ENCOUNTER 2024-05-02 08:55 | Emergency (ER) | payer MEDICAID, SELFPAY ==
[2024-05-02 08:58] VITALS: BP 127/92; PULSE 82; RESP 18; TEMP 35.7; O2SAT 99
--- NOTE | 2024-05-02 09:06 | W.ED.GENAD ---
Discharge Plan Disposition Patient Disposition: Home Discharge Details Clinical Impression: Abdominal pain, Nausea vomiting and diarrhea Primary Care Provider: Tamy Campbell ED Provider: Karel Desai Home Meds and New Rx's Prescriptions: Continued ascorbic acid (vitamin C) [Vitamin C] 500 mg Tablet 500 mg PO DAILY calcium-magnesium 300-300 mg Tablet 1 tab PO DAILY cholecalciferol (vitamin D3) [Vitamin D3] 10 mcg (400 unit) Tablet 10 mcg PO DAILY omega 1-jvc-hsn-fish oil [Fish Oil] 1,000 mg (120 mg-180 mg) Capsule 1 cap PO DAILY Probiotic 5 billion cell Capsule, Sprinkle 1 cap PO DAILY ibuprofen [IBU] 600 mg Tablet 600 mg PO Q6H PRN PRNQty: 30 0RF Discharge Instructions Instructions: Abdominal Pain, Adult ED, Nausea and Vomiting, Adult ED Additional Instructions: At this time no emergent findings were noted. There was found a small ovarian cyst which could be causing the abdominal pain and some signs of bowel irritation. It is important to stay well-hydrated And you may slowly advance your diet as tolerated. If not improving please follow-up with your primary care provider for reassessment otherwise return to the emergency department for any new or significant worsening of symptoms. Referrals: Tamy Campbell [Primary Care Provider] - [facility] General Mode of arrival: ambulatory. Date/Time Provider Initiated Documentation: 05/02/24 09:01. Limitations to Documentation: no limitations. Information obtained by: patient and RN notes reviewed. History of Present Illness 43 year old F presents to the emergency department with the chief complaint of Abdominal discomfort, nausea vomiting diarrhea, described as moderate and severe, Quality is described as aching, Patient started experiencing this day(s) (1) and it has been constant. No relieving factors improve symptom(s), No exacerbating factors reported . Patient did receive the following treatments prior to arrival, none Related Data Home Medications Medication Instructions Recorded Confirmed Lactobacil.acidophilus-Bifido.animalis 1 cap PO DAILY 03/27/20 05/02/24 5 billion cell sprinkle capsule (Probiotic) ascorbic acid (vitamin C) 500 mg 500 mg PO DAILY 03/27/20 05/02/24 tablet (Vitamin C) calcium-magnesium 300 mg-300 mg 1 tab PO DAILY 03/27/20 05/02/24 tablet cholecalciferol (vitamin D3) 10 10 mcg PO DAILY 03/27/20 05/02/24 mcg (400 unit) tablet (Vitamin D3) omega 7-jfo-tgn-fish oil 1,000 mg 1 cap PO DAILY 03/27/20 05/02/24 (120 mg-180 mg) capsule (Fish Oil) ibuprofen 600 mg tablet (IBU) 600 mg PO Q6H PRN PRN #30 tabs 05/02/24 Previous Rx's Medication Instructions Recorded ibuprofen 600 mg tablet (IBU) 600 mg PO Q6H PRN PRN #30 tabs 05/02/24 Allergies Allergy/AdvReac Type Severity Reaction Status Date / Time acetaminophen Allergy Intermediate Other (See Verified 05/02/24 09:02 Comment) latex Allergy Intermediate Itchiness,r Verified 05/02/24 09:02 kiet Sulfa (Sulfonamide Allergy Intermediate Rash Verified 05/02/24 09:02 Antibiotics) progesterone AdvReac Severe INTENSE Verified 05/02/24 09:02 MOODINESS promethazine AdvReac Unknown Topical Verified 05/02/24 09:02 Irritation General Stated Complaint: Nausea/Vomit/Diar VICKY: 3 Review of Systems Constitutional Constitutional: Denies fever(s), Denies headache(s) and Reports malaise ENT Ears, Nose, Mouth, and Throat: Denies headache(s) Cardiovascular Cardiovascular: Denies chest pain and Denies dyspnea Respiratory Respiratory: Denies dyspnea Gastrointestinal Gastrointestinal: Reports as per HPI, Reports abdominal pain, Denies hematochezia, Reports diarrhea, Reports nausea, Reports vomiting and Denies hematemesis Genitourinary Genitourinary: Denies hematuria, Reports flank pain and Denies vaginal discharge Musculoskeletal Musculoskeletal: Reports myalgias Neurologic Neurologic: Denies headache(s) Exam Const General: cooperative and no acute distress Orientation: alert, awake and oriented x3 Resp Effort & Inspection: normal respiratory effort and able to speak in complete sentences Auscultation: clear to auscultation bilaterally Cardio Rate: regular rate Rhythm: regular rhythm Heart Sounds: S1 normal and S2 normal GI Palpation: soft, not firm, no guarding and nontender Auscultation: normal bowel sounds General: CVA tenderness on the left Neuro General: patient alert, patient awake and patient oriented x3 Extrem General: capillary refill normal Course Vital Signs Vital signs: Vital Signs Temperature 35.7 C L 05/02/24 08:58 Pulse 82 05/02/24 08:58 Respiratory Rate 18 05/02/24 08:58 Blood Pressure 127/92 H 05/02/24 08:58 Pulse Oximetry 99 05/02/24 08:58 Temperature 35.7 C L 05/02/24 08:58 Temperature Source Skin 05/02/24 08:58 Pulse 82 05/02/24 08:58 Respiratory Rate 18 05/02/24 08:58 Blood Pressure 127/92 H 05/02/24 08:58 Blood Pressure Position Sitting 05/02/24 08:58 Pulse Oximetry 99 05/02/24 08:58 Oxygen Delivery Method Room Air 05/02/24 08:58 Oxygen Flow Rate 0 05/02/24 08:58 Pain Level 8 05/02/24 08:58 Medical Decision Making Patient presenting to the emergency department for chief complaint of nausea vomiting diarrhea. Patient reports after drinking coffee yesterday at a gas station she started developing symptoms. She states significant left flank pain and general abdominal pain. Patient does report significant past medical history of fibromyalgia with chronic pain making it difficult to assess new discomfort versus chronic symptoms. Patient denies fever, review of systems otherwise noncontributory. Physical exam shows mild left CVA tenderness, soft nonfocal abdominal findings with normal active bowel sounds, otherwise noncontributory exam. Will plan on checking patient's labs status and will obtain CT imaging due to CVA tenderness. Pending results will give fluids and ketorolac Reviewed patient's labs and CBC is overall unremarkable and nondiagnostic, CMP including lipase is completely normal, urinalysis shows no findings and patient is not . Reviewed CT imaging with radiologist and there is a small left ovarian cyst with some free fluid noted and some mild signs of colitis otherwise no emergent findings found. Discussed these findings with patient who is reassured. Conservative management discussed along with return and follow-up precautions. After discussion of diagnosis and plan of care patient has no further needs, questions, or concerns and states clear understanding to return to the emergency department for any worsening symptoms. This documentation was generated using [employer] system, please disregard any oddities of phrase or misspellings. Imaging Data Radiologic Study: Imaging: CT Scan Radiologist's impression: Exam(s) a CT:CT renal colic wo Exam(s) CT RENAL COLIC WO EXAM: CT RENAL COLIC WO CLINICAL HISTORY: Left flank pain. TECHNIQUE: Imaging Protocol: Axial computed tomography images with coronal and sagittal reformatted images were created and reviewed CONTRAST MATERIAL: Intravenous: none Oral: None COMPARISON: CT ABD PELVIS WITH CONTRAST from 07/02/2015 FINDINGS: VISUALIZED LUNG BASES: No nodules nor pleural effusions evident. ABDOMEN: There is some free fluid noted in the dependent aspect of the pelvis. There is no ascites in the upper abdomen. LIVER: There are no obvious focal hepatic lesions evident of this noninfused study. GALLBLADDER/BILIARY: No obvious gallbladder pathology. CBD is not dilated. PANCREAS: No evidence of obvious pancreatic mass nor dilatation of the pancreatic duct. SPLEEN: Spleen is not enlarged. No obvious intrasplenic lesions. ADRENALS: Left adrenal gland unremarkable. Previously described nodule in the right adrenal gland has not increased in size from 2018, measuring 1. 17 x 13 mm right adrenal nodule which is probably an adenoma as it is unchanged from 2018. 1.7 x 1.3 cm. Probable adenoma. KIDNEYS:There are no renal calculi nor hydronephrosis. No obvious solid renal masses on this non few study.. ABDOMINAL AORTA: Abdominal aorta is not enlarged. LYMPH NODES: There is no retroperitoneal nor paraaortic adenopathy. ABDOMINAL WALL: No evidence of significant anterior abdominal wall nor inguinal hernia. GI: There is no evidence of bowel obstruction, free air, nor abscess. Possible subtle colitis pattern in the ascending-right colon. The appendix cannot be identified as a separate structure. PELVIS: LYMPH NODES: There is no intrapelvic nor inguinal adenopathy. GI: Appendix not identified as a separate structure.No evidence of sigmoid diverticulitis. URINARY BLADDER: Slight uniform thickening of the urinary bladder wall, possibly related to under distension. Otherwise cystitis. REPRODUCTIVE: Uterus appears age-appropriate. Right adnexa unremarkable. There is a cyst in left ovary measuring approximately 1.8 cm. OSSEOUS: No significant osseous lesions. No fractures. IMPRESSION: 1. Study somewhat limited by lack of oral and IV contrast. There appears to be a possible colitis pattern in the ascending-right colon. No obvious diverticular disease. The appendix is difficult to identify as a separate structure. 2. There is 1.8 cm cyst in the left ovary. 3. There is some free fluid in the cul-de-sac Stable 17 x 13 mm adenoma in the right adrenal gland. Unchanged from 2018. Lab Data Lab results reviewed: Yes I reviewed the patient's lab results. Quality:[facility] Health Related Social Needs: No Data to Display PFSH All Active Problems (Updated 05/02/24 @ 11:10 by Karel Desai NP) Nausea vomiting and diarrhea (Acute) Abdominal pain (Acute) Encounter for care after hospital delivery (Acute) delivery delivered (Acute) H/O dengue (Acute 11/12/15) [facility] [place] [facility] Infectious Disease Sterilization consult (Acute 01/15/16) 01/2016 Medicaid consent signed and scanned into EMR. breast pain (Acute 10/11/14) Rx with OTC Clotrimazole 1% cream. Low vitamin D level (Acute 12/19/15) 2000IU daily LGSIL (low grade squamous intraepithelial dysplasia) (Acute 01/17/14) 10/11/14 repeat pap with HPV. 2014 Nl Pap + HPV. 2015 Nl Pap, + HPV Fibromyalgia (Acute 12/19/15) [place] [facility] [place], Li Stovall. Rec'd neurontin for pain Cervical high risk HPV (human papillomavirus) test positive (Acute 01/21/16) 2014, 2015 neg pap (+)HR HPV colpo 01/21/2016 Abdominal pain, unspecified site (Acute 08/25/17) Hx of delivery (Chronic) a. Unremarkable previous pregnancies, deliveries vaginal. Uterine cramping (Acute) Medical History (Updated 05/02/24 @ 11:10 by Karel Desai NP) Fibromyalgia dengue fever Bacterial urinary infection Family History Mother Hypertension Maternal Grandfather Heart disease mi x3 open heart x3 w/ one stint. Maternal Grandmother Heart disease mi . Other Family history of cardiovascular disease Social History Smoking/Tobacco Use Status: Former Tobacco Use Smoking risk assessment performed?: Yes Alcohol Intake: never Drug use: Never Substance use type: does not use Household members: children and other Details: Christie Ch in HS. Nasra 9yo, [employer]. 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 Do you feel safe in your relationship?: Yes Female Reproductive History Menstrual control method: condoms History History 7 Para 5 Hx # Term Pregnancies 5 Multiple births 0 Hx # Pregnancies 0 Ectopic pregnancies 0 AB induced 0 Hx Number of Living Children 5 AB spontaneous 2 Past Pregnancies Del. Date GA/Weeks # Preg Succ Route Wgt Sex Labor Lgth Anesthesia Location Prov Complic 11/12/99 42 No vaginal 4093.671 g Male 36 hrs anea 05/08/02 40 No vaginal 3855.535 g Female 5 hrs mark forester cm 03/24/09 41 No vaginal 3855.535 g Female 3 hrs mark forester cm 07/21/14 41 No vaginal 3628.739 g Male 1.5 hrs sebastián hall cm 05/03/19 37 No 2636.506 g Female regional Jordi Gale MD Delivery Date: 11/12/99 Last Updated by: Curry Pickett CNM tight as per pt yet w/o shoulder dystocia Delivery Date: 05/08/02 Last Updated by: Curry Pickett CNM 2` apnea ambu bag of 2,2,7 home Delivery Date: 03/24/09 Last Updated by: Curry Pickett CNM uneventful l&d. Delivery Date: 07/21/14 Last Updated by: Curry Pickett CNM w/o l&d complications, yet @ 28 weeks ptl, [facility] x3 days then d/c to home w/ bedrest for remainder of , went 41 weeks. Delivery Date: 05/03/19 Last Updated by: Criss Lopez LPN for breech presentation; Patient had timeable contractions, done emergently due to the breech presentation.
[2024-05-02 09:13] LABS: Bilirubin Negative (Negative); Blood Negative (Negative); Clarity Sl Cloudy (Clear); Glucose Negative (Negative); Ketones Negative (Negative); Leukocyte Esterase Negative (Negative); Nitrite Negative (Negative); Urobilinogen 0.2 mg/dL (Up to 0.2)
--- NOTE | 2024-05-02 09:15 | DI.CT_ITS ---
Exam(s) CT RENAL COLIC WO EXAM: CT RENAL COLIC WO CLINICAL HISTORY: Left flank pain. TECHNIQUE: Imaging Protocol: Axial computed tomography images with coronal and sagittal reformatted images were created and reviewed CONTRAST MATERIAL: Intravenous: none Oral: None COMPARISON: CT ABD PELVIS WITH CONTRAST from 07/02/2015 FINDINGS: VISUALIZED LUNG BASES: No nodules nor pleural effusions evident. ABDOMEN: There is some free fluid noted in the dependent aspect of the pelvis. There is no ascites in the upp er abdomen. LIVER: There are no obvious focal hepatic lesions evident of this noninfused study. GALLBLADDER/BILIARY: No obvious gallbladder pathology. CBD is not dilated. PANCREAS: No evidence of obvious pancreatic mass nor dilatation of the pancreatic duct. SPLEEN: Spleen is not enlarged. No obvious intrasplenic lesions. ADRENALS: Left adrenal gland unremarkable. Previously described nodule in the right adrenal gland flor s not increased in size from 2018, measuring 1. 17 x 13 mm right adrenal nodule which is probably an adenoma as it is unchanged from 2018. 1.7 x 1.3 cm. Probable adenoma. KIDNEYS:There are no renal calculi nor hydronephrosis. No obvious solid renal masses on this non few study.. ABDOMINAL AORTA: Abdominal aorta is not enlarged. LYMPH NODES: There is no retroperitoneal nor paraaortic adenopathy. ABDOMINAL WALL: No evidence of significant anterior abdominal wall nor inguinal hernia. GI: There is no evidence of bowel obstruction, free air, nor abscess. Possible subtle colitis pattern in the ascending-right colon. The appendix cannot be identified as a separate structure. PELVIS: LYMPH NODES: There is no intrapelvic nor inguinal adenopathy. GI: Appendix not identified as a separate structure.No evidence of sigmoid diverticulitis. URINARY BLADDER: Slight uniform thickening of the urinary bladder wall, possibly related to under dis tension. Otherwise cystitis. REPRODUCTIVE: Uterus appears age-appropriate. Right adnexa unremarkable. There is a cyst in left ov jimmy measuring approximately 1.8 cm. OSSEOUS: No significant osseous lesions. No fractures. IMPRESSION: 1. Study somewhat limited by lack of oral and IV contrast. There appears to be a possible colitis pa ttern in the ascending-right colon. No obvious diverticular disease. The appendix is difficult to i dentify as a separate structure. 2. There is 1.8 cm cyst in the left ovary. 3. There is some free fluid in the cul-de-sac Stable 17 x 13 mm adenoma in the right adrenal gland. Unchanged from 2018. Called by myself to ER provider. RADIATION DOSE DELIVERED: 701.51mGy.cm Total DLP DATA REPOSITORY: All CT scans at this facility are submitted to the National Radiology Data Registry (NRDR) Dose Index Registry (DIR) with the [employer] (ACR). RADIATION OPTIMIZATION: All CT scans at this facility use at least one of these dose optimization te chniques: automated exposure control; mA and/or kV adjustment per patient size (includes targeted exa ms where dose is matched to clinical indication); or iterative reconstruction.
[2024-05-02 09:35] LABS: Abs Immature Grans 0.03 10^3/uL (0.0-0.06); Absolute Basophil Count 0.05 10^3/uL (0.0-0.2); Absolute Eosinophil Count 0.07 10^3/uL (0.0-0.7); Absolute Lymphocyte Count 1.07 10^3/uL (1.2-3.4); Absolute Monocyte Count 0.48 10^3/uL (0.1-0.8); Absolute Neutrophil Count 4.57 10^3/uL (1.2-6.7); Basophils % 0.8 %; Eosinophils % 1.1 %; HCT 41.6 % (36.0-46.0); HGB 13.9 g/dL (11.2-15.7); Immature Grans % 0.5 %; Lymphocytes % 17.1 %; MCHC 33.4 % (32.0-36.0); MCV 93 fL (80-95); MPV 10.5 fL (8.0-11.0); Monocytes % 7.7 %; Neutrophils % 72.8 %; Platelet Count 228 10^3/uL (130-400); RBC 4.48 10^6/uL (3.93-5.22); RDW 12.2 % (11.7-14.6); WBC 6.27 10^3/uL (4.4-10.8)
[2024-05-02] MEDS: Normal Saline 1,000 ML 1000 ML IV (09:36)
[2024-05-02] MEDS: Ketorolac 15 MG/ML VIAL IVP (09:36)
[2024-05-02 09:49] LABS: ALT 20 U/L (14-59); AST 17 U/L (15-37); Albumin 3.6 g/dL (3.4-5.0); Alkaline Phosphatase 57 U/L (46-116); Anion Gap 10.5 mmol/L (3-11); BUN 9 mg/dL (7-18); Bilirubin, Total 0.45 mg/dL (0.2-1.0); CO2 25.5 mmol/L (21.0-32.0); Calcium 8.5 mg/dL (8.5-10.1); Chloride 105 mmol/L (98-107); Estimated GFR 71.69 (mL/min/1.73m2); Glucose 101 mg/dL (74-106); Lipase 33 U/L (16-77); Magnesium 2.1 mg/dL (1.8-2.4); Potassium 3.7 mmol/L (3.5-5.1); Sodium 141 mmol/L (136-145); Total Protein 7.5 g/dL (6.4-8.2)
[2024-05-02 11:30] VITALS: BP 127/92; PULSE 82; RESP 18; TEMP 35.7; O2SAT 99
== END 2024-05-02 11:23 | disposition home or self-care (01) ==
PROVIDERS: Emergency Provider Nurse Practitioner Family; PCP Family Medicine
DX: R11.2 Nausea with vomiting, unspecified (principal); R19.7 Diarrhea, unspecified; R10.32 Left lower quadrant pain; N83.202 Unspecified ovarian cyst, left side
CPT/HCPCS: 36415; 80053; 81025; 83690; 87637; 96361; 96374; 99284; 74176; 81003; 83735; 85025; 99283; J1885